=== PATIENT | male | born 1940 | race African-American/Black ===

== ENCOUNTER 2018-01-22 18:39 | Inpatient (IN) | payer OTHER ==
[~2018-01-22] VITALS: Ht 177.8 cm; Wt 65.8 kg
--- NOTE | ~2018-01-22 | EKG ---
[address] [address] ELECTROCARDIOGRAM REPORT Name: EVAN BARNES Room #: 457-P ADM IN M.R.#: [id number] Admission: 01/22/18 Attend Phys: Guillermo Montes MD Discharge: Date of : 40 Report #: [id number] THIS REPORT FOR: //name// [facility] ED Test Date: 2018-01-22 Test Time: 18:50:11 Pat Name: EVAN MEADELEY Department: Room: [facility] Gender: M Home Demonstrator: DILIA : 1940 Requested By: Shamika Arenas Order Number: [id number] MD: Garfield Hunt Measurements Intervals [place] Rate: 74 P: 78 [place]: 138 QRS: 68 QRSD: 96 T: 73 QT: 384 QTc: 426 Interpretive Statements Sinus rhythm No previous ECG available for comparison Electronically Signed On 01-23-2018 11:14:43 COFFEE GRINDER by Garfield Hunt [email or web address] <ELECTRONICALLY SIGNED> By: Garfield Hunt MD 01/23/18 1114 1850 49 Garfield Hunt MD /ELLIS
[2018-01-22 18:40] VITALS: BP 105/49
[2018-01-22 19:00] LABS: ABSOLUTE NEUTROPHILS 5.8 thou/uL (1.4-8.2); BASOPHILS 0.5 % (0.0-2.0); HEMATOCRIT 38.3 % (42.0-52.0); HEMOGLOBIN 12.9 gm/dL (14.0-18.0); LYMPHOCYTES 18.8 % (24.0-44.0); MCH 32.2 pg (26.0-34.0); MCHC 33.8 g/dL (28.0-37.0); MCV 95.3 fL (80.0-100.0); MONOCYTES 6.4 % (1.0-8.0); PLATELET COUNT 195 thou/uL (150-400); POLYS 74.3 % (36.0-66.0); RBC 4.02 mil/uL (4.50-6.00); RDW 13.6 % (10.5-14.5); WBC 7.9 thou/uL (4.0-11.0)
[2018-01-22 19:05] LABS: CALCIUM 8.8 mg/dL (8.5-10.1); CREATININE 1.6 mg/dL (0.7-1.3); POTASSIUM 4.4 mmol/L (3.5-5.1)
[2018-01-22 19:11] LABS: ALBUMIN 2.9 g/dL (3.4-5.0); TOTAL BILIRUBIN 0.9 mg/dL (<0.1-1.0); TOTAL PROTEIN 6.4 g/dL (6.4-8.2)
[2018-01-22 19:13] LABS: URINE BILIRUBIN NEGATIVE (Negative); URINE BLOOD NEGATIVE (Negative); URINE CLARITY CLEAR; URINE COLOR YELLOW; URINE GLUCOSE-RANDOM* 3+ (Negative); URINE KETONES NEGATIVE (Negative); URINE LEUKOCYTES-REFLEX NEGATIVE (Negative); URINE NITRITE-REFLEX NEGATIVE (Negative); URINE PROTEIN (DIPSTICK) NEGATIVE (Negative); URINE SPECIFIC GRAVITY 1.015 (1.005-1.035); URINE UROBILINOGEN 0.2 E.U./dl (0.2-1.0)
[2018-01-22] MEDS ORDERED: NITROGLYCERIN0.4 MG SUBLING (19:24)
[2018-01-22 20:19] VITALS: BP 94/48
[2018-01-22 21:20] VITALS: BP 110/48
[2018-01-23 03:24] VITALS: BP 101/51
[2018-01-23 05:52] LABS: CALCIUM 9.2 mg/dL (8.5-10.1); CREATININE 1.4 mg/dL (0.7-1.3); POTASSIUM 4.5 mmol/L (3.5-5.1)
[2018-01-23 07:26] VITALS: BP 102/43
[2018-01-23] MEDS ORDERED: SERTRALINE HCL50 MG PO (15:15)
[2018-01-23] MEDS ORDERED: METOPROLOL SUCC50 MG PO (15:17)
[2018-01-23] MEDS ORDERED: FLOMAX0.4 MG PO (15:18)
[2018-01-23] MEDS ORDERED: PLAVIX 75 MG TA75 M1 PO (15:19)
[2018-01-23] MEDS ORDERED: LIPITOR80 MG PO (15:19)
[2018-01-23] MEDS ORDERED: COLACE100 MG PO (15:19)
[2018-01-23] MEDS ORDERED: LISINOPRIL20 MG PO (15:20)
[2018-01-23] MEDS ORDERED: PROTONIX 20 MG20 M1 PO (15:20)
[2018-01-23] MEDS ORDERED: ANTIVERT25 MG PO (15:21)
[2018-01-23] MEDS ORDERED: ASPIRIN81 M2 PO (15:21)
[2018-01-23] MEDS ORDERED: CYMBALTA60 MG PO (15:23)
[2018-01-23] MEDS ORDERED: BENTYL 20 MG TA20 M1 PO (15:23)
[2018-01-23] MEDS ORDERED: IMDUR 60 MG TAB60 M1 PO (15:24)
[2018-01-23] MEDS ORDERED: JARDIANCE10 MG PO (15:24)
[2018-01-23 15:37] VITALS: BP 115/51
[2018-01-23 19:53] VITALS: BP 145/61
[2018-01-23 20:06] LABS: GLYCOHEMOGLOBIN (HGB A1C) 7.4 % (4.8-5.6)
[2018-01-24 03:13] LABS: ABSOLUTE NEUTROPHILS 7.3 thou/uL (1.4-8.2); BASOPHILS 0.3 % (0.0-2.0); EOSINOPHILS 0.1 % (0.0-3.0); HEMATOCRIT 34.2 % (42.0-52.0); HEMOGLOBIN 11.4 gm/dL (14.0-18.0); LYMPHOCYTES 26.1 % (24.0-44.0); MCH 31.6 pg (26.0-34.0); MCHC 33.2 g/dL (28.0-37.0); MCV 95.2 fL (80.0-100.0); MONOCYTES 8.8 % (1.0-8.0); PLATELET COUNT 189 thou/uL (150-400); POLYS 64.7 % (36.0-66.0); RDW 13.7 % (10.5-14.5); WBC 11.2 thou/uL (4.0-11.0)
[2018-01-24 03:30] VITALS: BP 115/47
[2018-01-24 03:42] LABS: CALCIUM 8.9 mg/dL (8.5-10.1); CREATININE 0.9 mg/dL (0.7-1.3); POTASSIUM 3.7 mmol/L (3.5-5.1)
[2018-01-24 04:08] LABS: FOLIC ACID 6.9 ng/mL (8.6-58.9); TSH 0.957 uIU/mL (0.358-3.740)
[2018-01-24 08:05] VITALS: BP 143/78
[2018-01-24] MEDS ORDERED: AUGMENTIN 875-1 EACH PO (12:40)
[2018-01-24] MEDS ORDERED: VENTOLIN HFA 1818 GM INH (12:40)
[2018-01-24 13:16] VITALS: BP 143/78
== END 2018-01-24 15:41 | disposition home or self-care (01) | DRG 682 ==
LOC: ER 18:39 → EDBD 19:53 → 4W 19:53 → EROBS 19:53 → 4W 20:49 → ENTRNSPT 01-24 13:37 → EDTRNSPTSTS 01-24 13:39 → 4W 01-24 15:41
PROVIDERS: Hospitalist; Nurse Practitioner Family
DX: N17.9 Acute kidney failure, unspecified (principal); J18.9 Pneumonia, unspecified organism; E44.0 Moderate protein-calorie malnutrition; J44.9 Chronic obstructive pulmonary disease, unspecified; I25.10 Atherosclerotic heart disease of native coronary artery without angina pectoris; E86.0 Dehydration; F32.9 Major depressive disorder, single episode, unspecified; K21.9 Gastro-esophageal reflux disease without esophagitis; E11.40 Type 2 diabetes mellitus with diabetic neuropathy, unspecified; I25.2 Old myocardial infarction; Z90.49 Acquired absence of other specified parts of digestive tract; Z90.81 Acquired absence of spleen; Z90.411 Acquired partial absence of pancreas; Z68.20 Body mass index [BMI] 20.0-20.9, adult; Z95.5 Presence of coronary angioplasty implant and graft; Z87.891 Personal history of nicotine dependence; Z79.899 Other long term (current) drug therapy
CPT/HCPCS: 10045

== ENCOUNTER 2019-05-04 14:56 | Emergency (ER) | payer OTHER ==
[~2019-05-04] VITALS: Ht 180.3 cm; Wt 63.5 kg
[~2019-05-04 14:56] MED LIST: ANTIVERT25 MG PO; ASPIRIN81 M2 PO; AUGMENTIN 875-1 EACH PO; BENTYL 20 MG TA20 M1 PO; COLACE100 MG PO; CYMBALTA60 MG PO; FLOMAX0.4 MG PO; IMDUR 60 MG TAB60 M1 PO; JARDIANCE10 MG PO; LIPITOR80 MG PO; LISINOPRIL20 MG PO; METOPROLOL SUCC50 MG PO; NITROGLYCERIN0.4 MG SUBLING; PLAVIX 75 MG TA75 M1 PO; PROTONIX 20 MG20 M1 PO; SERTRALINE HCL50 MG PO; VENTOLIN HFA 1818 GM INH
[2019-05-04 15:54] LABS: ABSOLUTE NEUTROPHILS 3.9 thou/uL (1.4-8.2); BASOPHILS 0.7 % (0.0-2.0); EOSINOPHILS 0.3 % (0.0-3.0); HEMATOCRIT 41.5 % (42.0-52.0); HEMOGLOBIN 13.7 gm/dL (14.0-18.0); LYMPHOCYTES 34.2 % (24.0-44.0); MCHC 33.1 g/dL (28.0-37.0); MCV 93.8 fL (80.0-100.0); MONOCYTES 7.3 % (1.0-8.0); PLATELET COUNT 234 thou/uL (150-400); POLYS 57.5 % (36.0-66.0); RBC 4.42 mil/uL (4.50-6.00); RDW 13.8 % (10.5-14.5); WBC 6.7 thou/uL (4.0-11.0)
[2019-05-04 16:00] LABS: ANION GAP 8 mmol/L (7-16); BUN 9 mg/dL (7-18); CALCIUM 9.4 mg/dL (8.5-10.1); CHLORIDE 96 mmol/L (98-107); CO2 28 mmol/L (21-32); GLUCOSE 317 mg/dL (74-106); SODIUM 132 mmol/L (136-145)
[2019-05-04 16:10] LABS: LIPASE 63 U/L (73-393); SGOT 17 U/L (15-37); SGPT 21 U/L (30-65); TOTAL BILIRUBIN 1.1 mg/dL (<0.1-1.0); TOTAL PROTEIN 7.2 g/dL (6.4-8.2); TROPONIN-I <0.06 ng/mL (<0.06)
[2019-05-04 16:22] LABS: URINE BILIRUBIN NEGATIVE (Negative); URINE BLOOD NEGATIVE (Negative); URINE CLARITY CLEAR; URINE COLOR YELLOW; URINE GLUCOSE-RANDOM* 3+ (Negative); URINE KETONES TRACE (Negative); URINE LEUKOCYTES-REFLEX NEGATIVE (Negative); URINE NITRITE-REFLEX NEGATIVE (Negative); URINE PROTEIN (DIPSTICK) NEGATIVE (Negative); URINE SPECIFIC GRAVITY 1.025 (1.005-1.035)
[2019-05-04] MEDS ORDERED: PEPCID20 MG PO (17:05)
[2019-05-04] MEDS ORDERED: ONDANSETRON HCL4 M2 PO (17:05)
[2019-05-04 17:25] VITALS: BP 138/74
--- NOTE | 2019-05-05 13:20 | EKG ---
[facility] [place] [address] ELECTROCARDIOGRAM REPORT Name: CAMERONEVAN Room #: DEP [facility]#: [id number] Admission: 05/04/19 Attend Phys: Discharge: 05/04/19 Date of : 40 Report #: [id number] THIS REPORT FOR: cc: FAM - Family physician unknown FAM - Family physician unknown Eddy Sweet MD [facility] THIS REPORT FOR: //name// [facility] ED Test Date: 2019-05-04 Test Time: 15:32:10 Pat Name: EVAN BARNES Department: Room: Gender: Emergency Department Technician: NO : 1940 Requested By: Amanda Galna Order Number: [id number] MD: Eddy Sweet Measurements Intervals [place] Rate: 74 P: 82 [place]: 137 QRS: 61 QRSD: 94 T: 67 QT: 396 QTc: 440 Interpretive Statements Sinus rhythm Left ventricular hypertrophy Compared to ECG 01/22/2018 18:50:11 No significant change was found Electronically Signed On 05-05-2019 13:19:10 CDT by Eddy Sweet [email or web address] <ELECTRONICALLY SIGNED> By: Eddy Sweet MD, FAC 05/05/19 1319 31 153 Eddy Sweet MD, [facility] /EPI
== END 2019-05-04 17:52 | disposition home or self-care (01) ==
LOC: ER 14:56
PROVIDERS: Physician Assistant
DX: R11.2 Nausea with vomiting, unspecified (principal); R10.33 Periumbilical pain; I25.2 Old myocardial infarction; E11.40 Type 2 diabetes mellitus with diabetic neuropathy, unspecified; Z98.61 Coronary angioplasty status; Z90.49 Acquired absence of other specified parts of digestive tract; Z79.899 Other long term (current) drug therapy; Z79.82 Long term (current) use of aspirin; Z87.891 Personal history of nicotine dependence

== ENCOUNTER 2019-06-05 16:25 | Emergency (ER) | payer OTHER ==
[~2019-06-05] VITALS: Ht 182.9 cm; Wt 59.0 kg
[~2019-06-05 16:25] MED LIST changes: +ONDANSETRON HCL4 M2 PO; +PEPCID20 MG PO
[2019-06-05 16:52] LABS: ABSOLUTE NEUTROPHILS 3.2 thou/uL (1.4-8.2); BASOPHILS 0.9 % (0.0-2.0); EOSINOPHILS 0.4 % (0.0-3.0); HEMATOCRIT 39.6 % (42.0-52.0); HEMOGLOBIN 13.4 gm/dL (14.0-18.0); LYMPHOCYTES 34.7 % (24.0-44.0); MCH 31.8 pg (26.0-34.0); MCHC 33.7 g/dL (28.0-37.0); MCV 94.2 fL (80.0-100.0); PLATELET COUNT 264 thou/uL (150-400); RDW 14.3 % (10.5-14.5); WBC 5.8 thou/uL (4.0-11.0)
[2019-06-05 17:08] LABS: CALCIUM 9.2 mg/dL (8.5-10.1); POTASSIUM 4.8 mmol/L (3.5-5.1)
[2019-06-05 17:09] LABS: APTT 25.3 Seconds (24.5-32.8); PROTIME 10.4 Seconds (9.3-11.4)
[2019-06-05 17:17] LABS: TROPONIN-I <0.06 ng/mL (<0.06)
[2019-06-05 18:21] LABS: URINE BILIRUBIN NEGATIVE (Negative); URINE BLOOD NEGATIVE (Negative); URINE CLARITY CLEAR; URINE COLOR YELLOW; URINE GLUCOSE-RANDOM* 3+ (Negative); URINE KETONES NEGATIVE (Negative); URINE LEUKOCYTES-REFLEX NEGATIVE (Negative); URINE NITRITE-REFLEX NEGATIVE (Negative); URINE PROTEIN (DIPSTICK) NEGATIVE (Negative)
[2019-06-05 20:20] VITALS: BP 140/80
--- NOTE | 2019-06-06 08:08 | EKG ---
[facility] [place] [address] ELECTROCARDIOGRAM REPORT Name: EVAN BARNES Room #: DEP [facility]#: [id number] Admission: 06/05/19 Attend Phys: Discharge: 06/05/19 Date of : 40 Report #: [id number] THIS REPORT FOR: cc: SUE - No family physician/PCP FAM - No family physician/PCP Eddy Sweet MD [facility] THIS REPORT FOR: //name// [facility] ED Test Date: 2019-06-05 Test Time: 16:29:14 Pat Name: EVAN BARNES Department: Room: Gender: Manager Intranet: [facility] : 1940 Requested By: Gracia Leger Order Number: [id number] MD: Eddy Sweet Measurements Intervals [place] Rate: 80 P: 86 [place]: 139 QRS: 80 QRSD: 88 T: 81 QT: 380 QTc: 439 Interpretive Statements Sinus rhythm Probable left ventricular hypertrophy Minimal ST elevation, diffuse leads Compared to ECG 05/04/2019 15:32:10 No significant change was found Electronically Signed On 06-06-2019 8:06:54 CDT by Eddy Sweet [email or web address] <ELECTRONICALLY SIGNED> By: Eddy Sweet MD, FACC 06/06/19 0806 1629 1629 Eddy Sweet MD, [facility] /EPI
== END 2019-06-05 20:15 | disposition home or self-care (01) ==
LOC: ER 16:25
PROVIDERS: Nurse Practitioner
DX: R53.1 Weakness (principal); R10.84 Generalized abdominal pain; I25.10 Atherosclerotic heart disease of native coronary artery without angina pectoris; E11.40 Type 2 diabetes mellitus with diabetic neuropathy, unspecified; J44.9 Chronic obstructive pulmonary disease, unspecified; Z90.49 Acquired absence of other specified parts of digestive tract; Z87.891 Personal history of nicotine dependence

== ENCOUNTER 2019-11-16 19:02 | Emergency (ER) | payer OTHER ==
[~2019-11-16] VITALS: Ht 180.3 cm; Wt 54.0 kg
[2019-11-16 19:53] LABS: ABSOLUTE NEUTROPHILS 4.9 thou/uL (1.4-8.2); BASOPHILS 1.2 % (0.0-2.0); EOSINOPHILS 0.8 % (0.0-3.0); HEMATOCRIT 32.4 % (42.0-52.0); LYMPHOCYTES 25.6 % (24.0-44.0); MCH 30.4 pg (26.0-34.0); MCHC 33.8 g/dL (28.0-37.0); MCV 89.9 fL (80.0-100.0); MONOCYTES 9.5 % (1.0-8.0); PLATELET COUNT 399 thou/uL (150-400); POLYS 62.9 % (36.0-66.0); RBC 3.61 mil/uL (4.50-6.00); RDW 14.9 % (10.5-14.5); WBC 7.8 thou/uL (4.0-11.0)
[2019-11-16 20:12] LABS: ALBUMIN 2.4 g/dL (3.4-5.0); ANION GAP 9 mmol/L (7-16); BUN 17 mg/dL (7-18); CALCIUM 10.4 mg/dL (8.5-10.1); CHLORIDE 91 mmol/L (98-107); CO2 27 mmol/L (21-32); POTASSIUM 4.5 mmol/L (3.5-5.1); SGOT 15 U/L (15-37); SGPT 12 U/L (30-65); SODIUM 127 mmol/L (136-145); TOTAL BILIRUBIN 0.4 mg/dL (0.2-1.0); TOTAL PROTEIN 8.3 g/dL (6.4-8.2); TROPONIN-I <0.06 ng/mL (<0.06)
[2019-11-16 20:16] LABS: GLUCOSE 558 mg/dL (74-106)
[2019-11-16 21:45] LABS: URINE BILIRUBIN NEGATIVE (Negative); URINE BLOOD NEGATIVE (Negative); URINE CLARITY CLEAR; URINE COLOR YELLOW; URINE GLUCOSE-RANDOM* 3+ (Negative); URINE KETONES NEGATIVE (Negative); URINE LEUKOCYTES-REFLEX NEGATIVE (Negative); URINE NITRITE-REFLEX NEGATIVE (Negative); URINE PROTEIN (DIPSTICK) NEGATIVE (Negative); URINE SPECIFIC GRAVITY <= 1.005 (1.005-1.035); URINE UROBILINOGEN 0.2 E.U./dl (0.2-1.0)
[2019-11-17 00:25] VITALS: BP 145/81
--- NOTE | 2019-11-17 16:43 | EKG ---
[facility] [place] [place] [address] ELECTROCARDIOGRAM REPORT Name: EVAN BARNES Room #: DEP [facility]#: [id number] Admission: 11/16/19 Attend Phys: Discharge: 11/17/19 Date of : 40 Report #: [id number] THIS REPORT FOR: cc: FAM - No family physician/PCP FAM - No family physician/PCP Eddy Sweet MD [facility] ~ THIS REPORT FOR: //name// [facility] ED Test Date: 2019-11-16 Test Time: 19:35:24 Pat Name: EVAN BARNES Department: Room: Gender: Plan Checker: : 1940 Requested By: Abdulaziz Steele Order Number: [id number] MD: Eddy Sweet Measurements Intervals [place] Rate: 80 P: 77 [place]: 137 QRS: 62 QRSD: 88 T: 63 QT: 359 QTc: 415 Interpretive Statements Sinus rhythm Minimal ST elevation, diffuse leads Compared to ECG 06/05/2019 16:29:14 No significant changes Electronically Signed On 11-17-2019 16:43:33 CDT by Eddy Sweet [email or web address] <ELECTRONICALLY SIGNED> By: Eddy Sweet MD, FACC 11/17/19 1643 34 34 Eddy Sweet MD, [facility] /EPI
== END 2019-11-17 01:03 | disposition home or self-care (01) ==
LOC: ER 19:02
PROVIDERS: Emergency Medicine
DX: E11.65 Type 2 diabetes mellitus with hyperglycemia (principal); R53.1 Weakness; I25.2 Old myocardial infarction; Z90.49 Acquired absence of other specified parts of digestive tract; Z90.89 Acquired absence of other organs; Z79.899 Other long term (current) drug therapy; Z87.891 Personal history of nicotine dependence

== ENCOUNTER 2019-11-27 03:02 | Inpatient (IN) | payer OTHER ==
[2019-11-27] VITALS (9 sets, daily range): BP systolic 109–138; BP diastolic 63–73
[~2019-11-27] VITALS: Ht 182.9 cm; Wt 54.6 kg
--- NOTE | 2019-11-27 03:21 | NUR ---
[address] [facility], [place] [address] [phone] JONO MENDEZ () [phone]
[2019-11-27] MEDS ORDERED: PEPCID20 MG PO (03:25)
[2019-11-27 04:21] LABS: HEMATOCRIT 32.5 % (42.0-52.0); HEMOGLOBIN 10.8 gm/dL (14.0-18.0); MCH 29.9 pg (26.0-34.0); MCHC 33.2 g/dL (28.0-37.0); MCV 89.8 fL (80.0-100.0); PLATELET COUNT 433 thou/uL (150-400); RBC 3.62 mil/uL (4.50-6.00); WBC 8.2 thou/uL (4.0-11.0)
[2019-11-27 04:22] LABS: ANION GAP 8 mmol/L (7-16); BUN 9 mg/dL (7-18); CALCIUM 10.1 mg/dL (8.5-10.1); CHLORIDE 95 mmol/L (98-107); CO2 29 mmol/L (21-32); CREATININE 1.2 mg/dL (0.7-1.3); GLUCOSE 357 mg/dL (74-106); POTASSIUM 4.6 mmol/L (3.5-5.1); SODIUM 132 mmol/L (136-145)
[2019-11-27 04:39] LABS: ALBUMIN 2.3 g/dL (3.4-5.0); MAGNESIUM 1.6 mg/dL (1.8-2.4); SGOT 14 U/L (15-37); SGPT 13 U/L (30-65); TOTAL BILIRUBIN 0.5 mg/dL (0.2-1.0); TOTAL PROTEIN 8.7 g/dL (6.4-8.2); TROPONIN-I <0.06 ng/mL (<0.06)
[2019-11-27 05:12] LABS: URINE BILIRUBIN NEGATIVE (Negative); URINE BLOOD NEGATIVE (Negative); URINE CLARITY CLOUDY; URINE COLOR YELLOW; URINE GLUCOSE-RANDOM* 3+ (Negative); URINE KETONES TRACE (Negative); URINE LEUKOCYTES-REFLEX NEGATIVE (Negative); URINE NITRITE-REFLEX NEGATIVE (Negative); URINE PROTEIN (DIPSTICK) NEGATIVE (Negative); URINE SPECIFIC GRAVITY 1.015 (1.005-1.035)
[2019-11-27 07:10] LABS: ABSOLUTE NEUTROPHILS 4.2 thou/uL (1.4-8.2); PLATELET ESTIMATE INCREASED
--- NOTE | 2019-11-27 07:44 | EKG ---
[facility] [place] [address] ELECTROCARDIOGRAM REPORT Name: LT CAMERON Room #: [facility]#: [id number] Admission: 11/27/19 Attend Phys: Discharge: Date of : 40 Report #: [id number] THIS REPORT FOR: cc: SUE - No family physician/PCP FAM - No family physician/PCP Eddy Sweet MD [facility] ~ THIS REPORT FOR: //name// [facility] ED Test Date: 2019-11-27 Test Time: 03:11:07 Pat Name: LT BARNES Department: Room: Gender: M Key Punch Operator: [place] [address] : 1940 Requested By: Danyel Anne Order Number: [id number] MD: Eddy Sweet Measurements Intervals [place] Rate: 100 P: 76 SD: 126 QRS: 56 QRSD: 85 T: 61 QT: 309 QTc: 399 Interpretive Statements Sinus tachycardia Otherwise normal tracing Compared to ECG 11/16/2019 19:35:24 ST (T wave) deviation no longer present Electronically Signed On 11-27-2019 7:44:04 CDT by Eddy Sweet [email or web address] <ELECTRONICALLY SIGNED> By: Eddy Sweet MD, [facility] 11/27/19 0744 0 0 Eddy Sweet MD, [facility] /EPI
--- NOTE | 2019-11-27 08:32 | NUR ---
ATTEMPTED TO CALL REPORT, WAS ADVISED NURSE WAS 'IN A ROOM' AND THEY WILL CALL THE ED BACK IN A FEW MINUTES FOR REPORT
[2019-11-27] MEDS ORDERED: CREON DR 36,001 EACH PO (09:41)
[2019-11-27] MEDS ORDERED: LANTUSSOLASTAR SUBQ (09:42)
[2019-11-27] MEDS ORDERED: VITAMIN D325 MCG PO (09:44)
[2019-11-27] MEDS ORDERED: VITAMIN B-121000 MC2 SUBLING (09:44)
[2019-11-27 09:49] LABS: ALBUMIN 2.4 g/dL (3.4-5.0); TOTAL PROTEIN 8.9 g/dL (6.4-8.2)
[2019-11-27 10:14] LABS: TSH 0.753 uIU/mL (0.358-3.740)
--- NOTE | 2019-11-27 14:07 | NUR ---
ASSUMED PATIENT CARE THIS AM AT APROXIMATELY 1000 PATIENT ARRIVED TO FLOOR FROM ER. NO ACUTE DISTRESS NOTED UPON ARRIVAL TO FLOOR. VSS. PATIENT ORIENTED TO ROOM AND FACILITY POLICIES AND PROCEDURES. ALL BELONGINGS WITHIN REACH. BED ALARM ARMED. O2 SAT STABLE ON RA AND RESPIRATIONS ARE EVEN/ UNLABORED. PATIENT REPORTS THAT HE HAS NOT BEEN EATING WELL FOR THE PAST FEW WEEKS. BECAUSE OF NAUSEA AND POOR APPETITE. WEIGHT LOSS OF ABOUT 20 LBS IN THE LAST TWO MONTHS. CALLED UPON ARRIVAL TO UNIT AND MADE AWARE OF VISITATION RESTRICTIONS AND VERBALIED UNSERSTANDING. STATES THAT SHE WOULD LIKE PATIENT TO BE TRANSFERRED TO A FACILITY UPON DISCHARGE BECAUSE OF COVID POSITIVE STATUS. MADE ESTHER JOHNSON AWARE. ENDOCRINE CONSULT CALLED THIS SHIFT BUT NO MD SALESPERSON ART OBJECTS TODAY, CALLED DR. ALBERTO TO MAKE AWARE OF SITUATION AND STATES "WILL TAKE CARE OF IT".
--- NOTE | 2019-11-27 16:07 | NUR ---
INITIAL ASSESSMENT: Received consult. SW reviewed chart and spoke with nursing. Pt was admitted from home and tested positive for COVID-19. Pt is in Enhanced Isolation. Pt with recent hx of weight loss, frequent falls and weakness. PT with hx of lung cancer. SW spoke with pt's , [place]ina, via phone. Introduced role of SW. Pt lives at home with his and dtr, who both have Lupus. Prior to admission, pt was independent with ADLs. Pt has had recent falls. Pt normally goes to the [facility] for primary care. No hx of services or post-acute placement. Pt's family was in town visiting last weekend from [place]. Multiple family members present. Unsure of where pt was exposed to COVID. SW discussed discharge needs. Pt's states she is uncomfortable with pt coming home while being COVID positive. SW discussed post-acute placement. Pt's would like to speak to the physicians about pt's condition and plan of care. Pt's states that pt said he "is ready to go be with God." Pt is a DNR. SW is following to assist as needed with discharge planning.
[2019-11-28 03:34] VITALS: BP 139/78
[2019-11-28 06:09] LABS: HEMATOCRIT 32.6 % (42.0-52.0); HEMOGLOBIN 10.9 gm/dL (14.0-18.0); MCH 29.8 pg (26.0-34.0); MCHC 33.5 g/dL (28.0-37.0); RBC 3.66 mil/uL (4.50-6.00); RDW 14.7 % (10.5-14.5)
[2019-11-28 06:18] LABS: CALCIUM 9.4 mg/dL (8.5-10.1); CREATININE 0.9 mg/dL (0.7-1.3); MAGNESIUM 1.8 mg/dL (1.8-2.4); PHOSPHORUS 2.7 mg/dL (2.5-4.9); POTASSIUM 4.2 mmol/L (3.5-5.1)
[2019-11-28 07:08] LABS: GLYCOHEMOGLOBIN (HGB A1C) 13.6 % (4.8-5.6)
[2019-11-28 07:23] VITALS: BP 117/69
--- NOTE | 2019-11-28 10:53 | NUR ---
ASSUMED PATIENT CARE THIS AM AT APPROXIMATELY 0700. PATIENT RESTING IN BED. AWAKE AND ALERT. O2 SAT STABLE ON ROOM AIR. PATIENT VERBALIZING THAT HE WOULD LIKE TO ASK DOCTOR ABOUT COMFORT CARE/ HOSPICE. HAS BEEN DEALING WITH LUNG CA AND STATES HE IS TIRED AND WANTS TO REST. DR. ALBERTO MADE AWARE UPON ROUNDS, STATES WILL CONSULT DR. MELTON. MADE DR. ALBERTO AWARE. PATIENT NOT EATING ANY MEALS THIS AM. CLIENT INSIGHTS CONSULTANT TO SEE PATIENT FOR SUPPLEMENTS.
[2019-11-28 11:26] VITALS: BP 102/56
[2019-11-28 15:14] VITALS: BP 103/61
--- NOTE | 2019-11-28 15:57 | NUR ---
ESTHER reviewed chart and spoke with nursing and attending physician. Pt remains in Enhanced Isolation due to COVID-19. Pt is febrile and is not on O2. Pt refused to have ID consultation. Psych consult ordered today to evaluate pt's competency. Pt's has requested pt be a full code. Code status changed from DNR. ESTHER spoke with pt's via phone to provide update. Pt's states that she feels that pt would want to be given the chance to recover from COVID, but knows that his dementia is also a barrier. ESTHER is following to assist as needed with discharge planning.
[2019-11-28 19:34] VITALS: BP 104/57
[2019-11-29 03:54] VITALS: BP 111/65
[2019-11-29 06:16] LABS: HEMOGLOBIN 9.2 gm/dL (14.0-18.0); MCH 29.4 pg (26.0-34.0); MCHC 32.8 g/dL (28.0-37.0); MCV 89.5 fL (80.0-100.0); RBC 3.13 mil/uL (4.50-6.00); RDW 14.6 % (10.5-14.5); WBC 6.4 thou/uL (4.0-11.0)
[2019-11-29 06:40] LABS: CALCIUM 9.4 mg/dL (8.5-10.1); CREATININE 0.8 mg/dL (0.7-1.3); MAGNESIUM 1.5 mg/dL (1.8-2.4); PHOSPHORUS 2.7 mg/dL (2.5-4.9)
[2019-11-29 08:32] VITALS: BP 103/57
--- NOTE | 2019-11-29 13:40 | NUR ---
ESTHER reviewed chart and spoke with nursing and attending physician. Pt remains in Enhanced Isolation due to COVID-19. Pt has been febrile and not requiring O2 or IV meds at this time. Psych consult ordered to evaluate pt's competency. Pt has been refusing treatment and would like to be a DNR. Pt's requested pt be a full code. SW spoke with pt's via phone to provide update. Pt's states that she is pt's DPOA and document is on file at the [facility]. Pt's states that she thinks pt's dementia is getting worse. Pt has mentioned that he would like to transfer to the [facility]. Pt's does not want him to transfer to the [place]. SW discussed discharge plans. Pt's does not want pt to return home due to his COVID status and that pt's and dtr, both have Lupus. They both tested negative for COVID last week. Options provided for SNF placement. Pt's is agreeable with referral to [facility] SNF. ESTHER contacted [facility] post acute liaison to see if they would have a bed available for early next week. No weekend discharge planned. ESTHER is following to assist as needed with discharge planning.
[2019-11-29 16:38] VITALS: BP 119/71
--- NOTE | 2019-11-29 19:05 | NUR ---
PATIENT STATED HE WILL LIKE TO GET MORE BLANKETS HE WAS COLD. IN BED WITH MORE THAN THREE BLANKETS. HAS VERY POOR APPETITE. WILL CONT WITH PLAN OF CARE.
[2019-11-29 19:16] VITALS: BP 97/59
[2019-11-30 03:52] VITALS: BP 125/60
[2019-11-30 05:18] LABS: HEMATOCRIT 26.5 % (42.0-52.0); HEMOGLOBIN 8.8 gm/dL (14.0-18.0); MCH 29.6 pg (26.0-34.0); MCHC 33.1 g/dL (28.0-37.0); MCV 89.3 fL (80.0-100.0); RBC 2.97 mil/uL (4.50-6.00); WBC 5.5 thou/uL (4.0-11.0)
[2019-11-30 05:24] LABS: CREATININE 0.7 mg/dL (0.7-1.3); MAGNESIUM 1.5 mg/dL (1.8-2.4); PHOSPHORUS 2.3 mg/dL (2.5-4.9); POTASSIUM 3.8 mmol/L (3.5-5.1)
[2019-11-30 07:36] VITALS: BP 111/62
[2019-11-30 11:16] VITALS: BP 99/51
[2019-11-30 15:25] VITALS: BP 95/54
--- NOTE | 2019-11-30 16:39 | NUR ---
PATIENT NOTED TO BE SLIGHTLY CONFUSED THIS PM. HE IS ALERT ORIENTED X4 WITH OCCASIONAL CONFUSION. WAS NOTED LYING ACROSS THE BED WITH FEET ON THE FLOOR AND MUMBLING TO SELF. REORIENTED AND ASSISTED BACK TO BED. RESPIRAITONS ARE EVEN NON LABORED. WILL CONT WITH PLAN OF CARE.
[2019-11-30 20:37] VITALS: BP 135/73
[2019-12-01 03:47] VITALS: BP 135/72
--- NOTE | 2019-12-01 04:05 | NUR ---
PT IS VERY WEAK, HE NEEDS STANDBY ASSIST OUT OF BED TO BSC. HE IS DRINKING PO WELL. UP TO BSC AT BEDTIME, HE FELT LIKE HE COULD HAVE A BM, BUT NONE AT THAT TIME. HE DENIES FEELING OVERFULL OR DISCOMFORT. HE HAS HAD A ELEVATE TEMP TONIGHT. TYLENOL GIVEN.
[2019-12-01 04:11] LABS: HEMOGLOBIN 9.3 gm/dL (14.0-18.0); MCH 29.5 pg (26.0-34.0); MCHC 33.1 g/dL (28.0-37.0); RBC 3.15 mil/uL (4.50-6.00); RDW 14.9 % (10.5-14.5); WBC 5.7 thou/uL (4.0-11.0)
[2019-12-01 04:18] LABS: CALCIUM 8.8 mg/dL (8.5-10.1); CREATININE 0.9 mg/dL (0.7-1.3); MAGNESIUM 1.6 mg/dL (1.8-2.4); POTASSIUM 3.7 mmol/L (3.5-5.1)
[2019-12-01 08:59] VITALS: BP 129/72
--- NOTE | 2019-12-01 11:18 | NUR ---
PT HAD A BOWEL MOVEMENT TODAY, NO COMPLAINTS FROM THE PT AT THIS TIME. PT'S O2 IS AT 90% AT THIS TIME. PT WAS PLACED ON 2L/NC. NO OTHER COMPLAINTS AT THIS TIME. PT DID CALL APPROPERIATELY TO USE THE BATHROOM. ALL MEDS WERE TAKEN, THOUGH PATIENT DID COMPLAIN OF HAVING TOO MANY PILLS.
[2019-12-01 12:49] VITALS: BP 103/60
[2019-12-01 19:45] VITALS: BP 107/66
[2019-12-02] VITALS (7 sets, daily range): BP systolic 106–138; BP diastolic 60–81
--- NOTE | 2019-12-02 01:10 | NUR ---
ASSESSMENT: PT IS ALERT AND ORIENT TIMES TWO THIS SHIFT. SLIGHTLY CONFUSED AND FORGETFUL AT TIMES. DENIES PAIN. REPEATS HIMSELF IN LETTING ME KNOW THAT "THIS HAS BEEN THE SICKEST HE'S EVER BEEN". LOTS OF REASSURRANCE AND ENCOURAGEMENT GIVEN. VSS, AFEBRILE. SR PER MONITOR. CALL LIGHT NEAR BY. PPN INFUSING WITHOUT DIFFICULTY. SLOW PROGRESS TOWARDS DC GOALS. WILL CONTINUE TO MONITOR.
--- NOTE | 2019-12-02 15:04 | NUR ---
ESTHER reviewed chart and spoke with nursing and attending physician. Pt remains in Enhanced Isolation due to COVID-19. Pt has had fevers and is not requiring O2. Psych evaluated pt and states that pt does not have the capacity to make his own medical decisions. Palliative care physician to be consulted to discuss plan of care and treatment goals with pt's . Pt's agreeable with referral to [facility] for placement. SW faxed referral for review and notified post acute liaison of new referral. ESTHER is following to assist as needed with discharge planning.
--- NOTE | 2019-12-02 19:00 | NUR ---
PT DID WELL TODAY, RECEIVED FIRST DOSE OF REMDESEVIR, SHETH WAS INSERTED DUE TO BLADDER SCAN RESIDUAL VOLUME OF 800CC. PT TOLERATED THE PROCEDURE WELL. PROCEDURE WAS COMPLETED ASEPTICALLY BY THIS RN. PT WAS INSTRUCTED TO CONSUME ALL OF THE ENSURE AND WAS ABLE TO DO SO EASILY. WILL HAVE TO PASS THIS ALONG TO THE NOC SHIFT RN. PT ALSO WAS TO RECEIVE CONVALSCENT PLASMA THIS EVENING, THOUGH IT WAS PREPARED AROUND 1830 SO RN HAS TO DELEGATE THIS TASK TO THE NOC RN. VS ARE STABLE. PT IS DOING BETTER WITH THE MODERATE SCALE INSULIN. CONTINUING TO MONITOR, NO BM THIS SHIFT THOUGH PT HAD A LARGE BM YESTERADY.
[2019-12-03 03:56] VITALS: BP 103/61
--- NOTE | 2019-12-03 05:31 | NUR ---
PT SLEPT MOST OF THE NIGHT. RESPIRATIONS EVEN AND UNLABORED. VSS. AFEBRILE. PPN INFUSING ORDERED. CONVALESCENT PLAMSA GIVEN; PT TOLERATED WELL. GOOD URINE OUTPUT VIA SHETH. FALL PRECAUTIONS IN PLACE. PROGRESSING SLOWLY TOWARD POC GOALS. WILL GIVE REPORT TO ONCOMING NURSE.
[2019-12-03 06:46] LABS: ABSOLUTE NEUTROPHILS 4.8 thou/uL (1.4-8.2); BASOPHILS 0.3 % (0.0-2.0); HEMATOCRIT 27.1 % (42.0-52.0); LYMPHOCYTES 23.2 % (24.0-44.0); MCH 29.2 pg (26.0-34.0); MCHC 33.2 g/dL (28.0-37.0); MONOCYTES 7.1 % (1.0-8.0); PLATELET COUNT 355 thou/uL (150-400); POLYS 69.4 % (36.0-66.0); RBC 3.08 mil/uL (4.50-6.00); RDW 14.7 % (10.5-14.5); WBC 6.9 thou/uL (4.0-11.0)
[2019-12-03 07:02] LABS: FIBRINOGEN 433.1 mg/dL (210-360); INR 1.1; PROTIME 11.2 Seconds (9.3-11.4)
[2019-12-03 07:18] LABS: ALBUMIN 1.6 g/dL (3.4-5.0); ANION GAP 2 mmol/L (7-16); BUN 14 mg/dL (7-18); CHLORIDE 96 mmol/L (98-107); CO2 30 mmol/L (21-32); CREATININE 0.7 mg/dL (0.7-1.3); DIRECT BILIRUBIN < 0.1 mg/dL (<0.1-0.2); GLUCOSE 239 mg/dL (74-106); POTASSIUM 4.8 mmol/L (3.5-5.1); SGOT 27 U/L (15-37); SGPT 15 U/L (30-65); SODIUM 128 mmol/L (136-145); TOTAL BILIRUBIN 0.2 mg/dL (0.2-1.0); TOTAL PROTEIN 6.7 g/dL (6.4-8.2)
[2019-12-03 07:46] VITALS: BP 124/76
[2019-12-03 11:12] VITALS: BP 106/62
--- NOTE | 2019-12-03 11:37 | HC ---
[facility] [place] [address] CONSULTATION Name: CAMERON Room #: [address] [place] [address] IN M.R.#: [id number] Admission: 11/27/19 Attend Phys: Daniel Solis MD Discharge: Date of : 40 Report #: [id number] THIS REPORT FOR: cc: SUE Bowling family physician/PCP SUE Bowling family physician/PCP Josh Crenshaw MD ~ CC: [facility] physician/PCP Daniel Solis ENDOCRINE CONSULTATION NOTE CONSULTING PHYSICIAN: Dr. Solis. REASON FOR CONSULTATION: Uncontrolled type 2 diabetes mellitus. HISTORY OF PRESENT ILLNESS: This is a 78-year-old male patient whose medical background is significant for multiple medical issues including active lung cancer, coronary artery disease, hypertension, type 2 diabetes mellitus, depression, and BPH. The patient was admitted on 11/26 due to progressive generalized weakness and fatigue and was admitted for further care and monitoring where he was eventually found to be COVID-19 positive. The patient's background is noted for type 2 diabetes mellitus. On further questioning, the patient indicates that he has had type 2 diabetes mellitus for many years, but was unable to give detailed description of his treatment plan and whether it involves insulin or not. Having reviewed his medical records, it appears that he is maintained on Lantus insulin 15 units at bedtime. He was unable to give much insight into the pattern of blood glucose values that he has at home. Although he thought most were in the 140s. He believes that he would occasionally develop hypoglycemia, but does not believe that any was severe enough to warrant hospital stay or third democrat assistance. The patient is not aware of issues pertaining to diabetic retinopathy, nephropathy, neuropathy, but he does believe he has a history of CAD. He is also known to have hyperlipidemia and is maintained on atorvastatin 80 mg daily. He is known to have hypertension and is maintained on a combination of metoprolol 50 mg daily, Zestril 20 mg daily in addition to Imdur for his CAD background. REVIEW OF SYSTEMS: CONSTITUTIONAL: Fatigue, tiredness, but not fever or chills. He does not believe that his weight had changed significantly over the past few months. HEENT: Negative for sore throat, sinus pain or ear drainage. PULMONARY: Shortness of breath and cough, but not hemoptysis. CARDIAC: Negative for chest pain, palpitations, syncope or presyncope. GASTROINTESTINAL: Negative for abdominal pain, nausea, vomiting or changes in bowel movement frequency. [facility] [address] [place] [address] CONSULTATION Name: LT CAMERON Room #: 356-P [facility] IN [facility].#: [id number] Admission: 11/27/19 Attend Phys: Daniel Solis MD Discharge: Date of : 40 Report #: [id number] NEUROLOGY: Negative for loss of consciousness, headaches or seizure activity. Otherwise, his review of systems is noncontributory other than those mentioned in HPI. PAST MEDICAL HISTORY: 1. Type 2 diabetes mellitus. 2. Hypertension. 3. Hyperlipidemia. 4. Lung cancer. 5. Coronary artery disease, status post OR x 2, status ____ CABG x 2. 6. Diabetic neuropathy. 7. Depression. 8. GERD. OUTPATIENT MEDICATIONS: Include Zoloft 100 mg daily, metoprolol 50 mg daily, Flomax 0.4 mg daily, Lipitor 80 mg at bedtime, Colace 100 mg b.i.d., Plavix 75 mg daily, Protonix 20 mg daily, lisinopril 20 mg daily, aspirin 81 mg daily, Antivert 25 mg t.i.d., Bentyl 20 mg q. 6 hours p.r.n. cramps, Cymbalta 60 mg daily, Imdur 60 mg daily, Pepcid 20 mg daily, Creon with meals, Lantus insulin 15 units at bedtime, vitamin D3 25 mcg daily, vitamin B12 daily. ALLERGIES: No known drug allergies. FAMILY HISTORY: Noncontributory. SOCIAL HISTORY: The patient denies the active use of tobacco or alcohol. No use of illicit drugs. He is a former smoker. PHYSICAL EXAMINATION: GENERAL: Pleasant -Serbian male patient who is not in apparent pain or distress. He is sitting upright in bed. VITAL SIGNS: Blood pressure 111/66 mmHg, heart rate is 79 beats per minute, respirations 16 per minute, temperature 36.9 degrees Celsius. CONSTITUTIONAL: The patient appears comfortable, not in apparent distress. HEENT: Anicteric sclerae. Intact extraocular motions. NECK: Supple, without JVD, carotid bruits or lymphadenopathy. I do not appreciate thyromegaly. CHEST: Noted for diminished air entry bilaterally with scattered rales and rhonchi, but no wheeze or crackles. HEART: Regular rate and rhythm without murmurs or gallops. ABDOMEN: Soft, lax. No guarding. Active bowel sounds. EXTREMITIES: Lower extremity exam is negative for ankle edema, skin breaks, ulcerations. Pedal pulses are appreciated. NEUROLOGIC: Awake and alert, but not fully oriented, generally nonfocal exam. PSYCHIATRIC: Pleasant, interactive. Normal mood and affect. [facility] [address] [place] [address] CONSULTATION Name: LT CAMREON Room #: 356-P [facility] IN Daniel#: [id number] Admission: 11/27/19 Attend Phys: Daniel Solis MD Discharge: Date of : 40 Report #: [id number] LABORATORY DATA: Blood glucose values were reviewed at length since his hospital admission and are noted for blood glucose values are often over 250 mg/dL, although the patient had one documentation of hypoglycemia at 59 on 11/29. Sodium 130, potassium 3.7, chloride 95, CO2 of 27, anion gap 8, BUN 7, creatinine 0.9, AST 14, lipase 63, total bilirubin 0.5, calcium 8.8, phosphorus 2.3, magnesium 1.6, alkaline phosphatase 78, ALT 13, total protein 8.9, albumin 2.4, EGFR 99. Lactic acid 1.0. Troponin is negative. INR 1.0. White blood count 5.7, hemoglobin 9.3, hematocrit 28, platelets 357. TSH is 0.753. Vitamin B12 of 1393. Hemoglobin A1c 13.6. Vitamin D 28.1. ASSESSMENT AND PLAN: 1. Type 2 diabetes mellitus. 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 His hemoglobin A1c is indicative of predominant severe hyperglycemia prior to admission. During this admission, the patient has been challenged by the issues of active infection as well as the need to use intravenous steroids, which are still being maintained at rate of dexamethasone 6 mg daily. The patient is currently managed with a Humalog supplemental scale, moderate intensity, which I do not mind a mild maintaining but I would certainly like to resume his Lantus insulin coverage with 15 units daily. I will also initiate therapy with low dose metformin therapy at 500 mg daily, especially with a fairly intact kidney function. Blood glucose monitoring will continue a.c. and at bedtime and further therapeutic adjustments will be made accordingly. 2. Hyperlipidemia. The patient is currently on atorvastatin therapy and tolerates it well, he is to continue with the same. 3. Hypertension. The patient's level of blood pressure control is adequate, he is to continue with the same. 4. Pneumonia. The patient was diagnosed as having COVID-19. He has been managed with remdesivir as well as IV steroids and antibiotics. ID team is following closely. I have reviewed the patient's clinical care notes, laboratory studies in addition to other pertinent clinical information for over 35 minutes in addition to my encounter time with him. I certainly appreciate this consultation by Dr. Solis. <ELECTRONICALLY SIGNED> By: Josh Crenshaw MD 12/03/19 1137 1429 1950 Josh Crenshaw MD /nt
[2019-12-03 15:43] VITALS: BP 117/64
--- NOTE | 2019-12-03 15:54 | NUR ---
ESTHER reviewed chart and spoke with nursing and attending physician. Pt remains in Enhanced Isolation due to COVID-19. Pt is afebrile and on 2L of O2. Pt started course of Remdesivir yesterday. Pt has been accepted to [facility] when medically stable. ESTHER spoke with pt's , via phone to provide update. Pt's is currently in the hospital (room 364) with COVID-19. Pt's does not want her to know that she is in the hospital. Pt's is agreeable with discharge plan for pt and requests that she and her dtr, Autumn ([phone]) be kept updated. Pt's states that if her condition gets worse, Autumn, will need to be the point of contact for pt. ESTHER updated [facility] post-acute liaison. ESTHER is following to assist as needed with discharge planning.
--- NOTE | 2019-12-03 18:38 | NUR ---
PT'S CODE STATUS CHANGED TODAY, PER THERE IS NO FURTHER PURSUIT, RN DID SEE AN ORDER FOR 2L/NC FOR COMFORT. RN ADMINISTERED LORAZEPAM FOR PT ANXIETY, PT WAS ABLE TO RELAX. PPN WAS DISCONTINUED PER ORDER. PT DID HAVE AN EPISODE OF CONFUSIONG TOWARDS THE END OF THE SHIFT. TRIED TO GET OUT OF THE BED. PT WAS ESCORTED BACK INTO BED WITH RN/BRAIDER TENDER ASSISTANCE. NO COMPLAINTS OF NAUSEA THIS SHIFT. THE ROOM IS DIMLY LIT TO REDUCE ANXIETY/STRESS. ENSURE WAS ENCOURAGED THROUGHOUT THE SHIFT. NASAL CANULA REMAINS IN PLACE. SHETH IS STILL PERFORMING WELL. CONTINUING TO MONITOR AT THIS TIME
[2019-12-03 19:30] VITALS: BP 134/76
--- NOTE | 2019-12-04 07:16 | NUR ---
ASSUMED PT CARE AROUND 1930. ALERT AND AWAKE WITH OCCASIONAL IMPULSIVITY TO STAND UP. VSS. SHETH INTACT. NO S/S ACUTE DISTRESS NOTED OR REPORTED AT THIS TIME. CARE TRANSFERRED TO INCOMING RN AT THIS TIME.
[2019-12-04 07:53] LABS: ALBUMIN 1.8 g/dL (3.4-5.0); CREATININE 0.9 mg/dL (0.7-1.3); DIRECT BILIRUBIN < 0.1 mg/dL (<0.1-0.2); SGOT 41 U/L (15-37); SGPT 22 U/L (30-65); TOTAL BILIRUBIN 0.2 mg/dL (0.2-1.0); TOTAL PROTEIN 7.4 g/dL (6.4-8.2)
--- NOTE | 2019-12-04 15:50 | NUR ---
Received consult for pt to go to a LTC facility with hospice. SW reviewed chart and spoke with nursing and attending physician. Pt is a DNR. Pt remains in Enhanced Isolation due to COVID-19. Pt is afebrile and on 2L of O2. [facility] is able to accept pt. SW placed call to pt's 's room here at the hospital to discuss discharge plan and SNF v. LTC with hospice. 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 No answer. SW to follow up with pt's to discuss discharge plans. SW to contact pt's dtr, Autumn, if pt's is unable to assist with discharge planning. SW is following to assist as needed with discharge planning.
[2019-12-04 17:00] VITALS: BP 117/71
--- NOTE | 2019-12-04 18:38 | NUR ---
PATIENT HAS RESTED IN BED THROUGH THE DAY. HE IS PLEASANTLY CONFUSED. RESPIRATIONS ARE NON LABORED. CONT WITH PLAN OF CARE.
[2019-12-04 20:19] VITALS: BP 131/76
[2019-12-05 04:24] VITALS: BP 114/68
[2019-12-05 07:09] LABS: ALBUMIN 1.8 g/dL (3.4-5.0); CREATININE 0.6 mg/dL (0.7-1.3); DIRECT BILIRUBIN < 0.1 mg/dL (<0.1-0.2); SGOT 39 U/L (15-37); SGPT 19 U/L (30-65); TOTAL BILIRUBIN 0.2 mg/dL (0.2-1.0); TOTAL PROTEIN 7.3 g/dL (6.4-8.2)
--- NOTE | 2019-12-05 07:11 | NUR ---
progress pt alert to self and some people but confused about time. slept most of shift strong in place draining large amounts of urine denies pain able to assist in repositioning. lungs with slight crackles in upper obes diminished in bases. no iv access tele dc'd [id number] poc.
--- NOTE | 2019-12-05 07:31 | NUR ---
progress pt alert pleasant and cooperative. denies pain tele intact on room air diminished lung sounds with an occasional non productive cough, strong intact draining large amount of urine. had a small bm slept most of shift continue poc.
[2019-12-05 07:41] VITALS: BP 119/68
--- NOTE | 2019-12-05 18:33 | NUR ---
RN HAS ASSUMED PT'S CARE AT 0700AM, PT IS A&OX2 ( PERSON AND PLACE ), PT CAN FOLLOW COMMANDS, PT IS CONTINUING ISOLATION FOR POSITIVE COVID, PT STARTS COMFORT CARE AT 12/03/19, WE ENCAURAGE PT TO EAT AND DRINK, PT DENIES PAIN AND SOB AT THIS TIME.
[2019-12-05 19:37] VITALS: BP 102/61
--- NOTE | 2019-12-06 03:37 | NUR ---
PATIENT ASSESSED AND IS ALERT X 1-2. IS ON COMFORT CARE. REMAINS CONFUSED AT TIMES. TURNS SELF ALL THE TIME. SHETH INTACT. REMAINS ON BEDREST. IS A POOR EATER. ENCOURGED TO EAT AND DRINK FLUIDS MORE. HAS A IV IN RIGHT AND LEFT FA IV. NO SKIN ISSUES NOTED. TURNS SELF IN BED. CONT PLAN OF CARE.
[2019-12-06 04:27] VITALS: BP 120/70
[2019-12-06 06:53] LABS: ALBUMIN 1.8 g/dL (3.4-5.0); CREATININE 0.7 mg/dL (0.7-1.3); DIRECT BILIRUBIN 0.1 mg/dL (<0.1-0.2); TOTAL BILIRUBIN 0.3 mg/dL (0.2-1.0); TOTAL PROTEIN 7.3 g/dL (6.4-8.2)
--- NOTE | 2019-12-06 16:24 | NUR ---
SW reviewed chart and spoke with nursing and attending physician. Pt remains in Enhanced Isolation due to COVID-19. Pt is afebrile and on comfort care measures. Pt's in ICU. SW spoke with pt's dtr, Yue, via phone to provide update. Pt's dtr state they would like pt to receive rehab services. SW explained that pt's had discussed with palliative care physician that pt would be comfort care and not be continuing with aggressive treatment at this time. SW also discussed post acute placement at [facility], which had been previously discussed with pt's . Pt's dtrs state they need to discuss plans with family over the weekend, as they do not want pt to go to a nursing facility. Provided SW contact info. No weekend discharge planned. SW is following to assist as needed with discharge planning.
[2019-12-06 16:35] VITALS: BP 98/62
--- NOTE | 2019-12-06 18:37 | NUR ---
PATIENT REMAINS CONFUSED AT THIS TIME. DOES NOT SEEM TO BE IN PAIN. PLEASANT WITH CARE. WILL WITH PLAN OF CARE.
[2019-12-06 19:54] VITALS: BP 101/62
--- NOTE | 2019-12-06 22:29 | NUR ---
PT RESTING IN BED WATCHING TV. O2 PER NC. BLUNTED AFFECT, MINIMAL VERBAL RESPONSE TO STAFF INTERACTIONS. SHETH INTACT. PT REPORTED TO HAVE POOR PO INTAKE AND DECLINED HS SNACK. BED ALARM ON. PTS DAUGHTER BAKARI CALLED FOR UPDATE.
[2019-12-07 04:00] VITALS: BP 116/61
[2019-12-07 07:54] VITALS: BP 131/78
[2019-12-07 15:48] VITALS: BP 93/59
--- NOTE | 2019-12-07 18:12 | NUR ---
PATIENT CONT TO BE WEAK. HE DOES NOT SEEM TO BE IN PAIN. HE HAS RESTED IN ROOM THROUGH THE DAY. WILL CONT WITH PLAN OF CARE.
[2019-12-07 19:18] VITALS: BP 107/63
--- NOTE | 2019-12-08 02:17 | NUR ---
PT PROGRESSING SLOWLY TOWARDS D/C GOALS. VSS AFEBRILE. NO C/O TONIGHT. HE IS RESTING QUIETLY. NO S/S DISTRESS. BED DOWN CALL LIGHT IN REACH. BED ALARM ON. WILL CONTINUE TO MONITOR PT FOR CHANGES.
[2019-12-08 04:33] VITALS: BP 114/65
[2019-12-08 09:03] VITALS: BP 116/64
--- NOTE | 2019-12-08 12:45 | NUR ---
ASSUMED PATIENT CARE THIS AM AT APPROXIMATELY 0700. PATIENT IS AWAKE ALERT, DISORIENTED TO TIME. PATIENT STATES HE IS FEELING OK THIS AM, REPORTS SOME NAUSEA. ZOFRAN GIVEN FOR NAUSEA AND TOLERATING WELL. TOLERATING PO MEDS. EATING LESS THAN 10% of MEALS TODAY. SPOKE WITH PATIENT DAUGHTER REGARDING PLAN OF CARE. STATES THAT SHE WOULD LIKE TO SET UP A FACETIME MEETING WITH HER MOTHER AND FATHER CONTACTED NURSE TAKING CARE OF PATIENT AND AWAITING CALL BACK FOR AVALIABLE TIME FOR VIDEOCALL. PATIENT ENCOURAGED TO TURN IN BED AND ASSISTED TO SET UP FOR ALL MEALS.
[2019-12-08 17:45] VITALS: BP 100/58
[2019-12-08 19:07] VITALS: BP 101/59
--- NOTE | 2019-12-09 02:10 | NUR ---
PT IS ALERT AND ORIENTED X4 VSS AFEBRILE. ENC PO FLUIDS AND SNACK. PT HAS POOR APPETITE. DENIED PAIN. UNALBORED ON 2LNC. PT REFUSED TO TURN. HE CAN TURN HIMSELF. NO SKIN BREAKDOWN NOTED. ENCOURAGED HIM TO TURN SIDE TO SIDE. BED DOWN .CALL LIGHT IN REACH. BED ALARM IS ON.
[2019-12-09 03:12] VITALS: BP 116/66
--- NOTE | 2019-12-09 06:18 | NUR ---
PT RESTING QUIETLY. NO S/S DISTRESS.
[2019-12-09 06:37] VITALS: BP 116/64
[2019-12-09 08:13] VITALS: BP 108/64
--- NOTE | 2019-12-09 12:31 | NUR ---
FOOD SET UP FOR PATIENT. PT ENCOURAGED TO DRINK HIS ENSURE.
--- NOTE | 2019-12-09 15:37 | NUR ---
SW reviewed chart and spoke with nursing and attending physician. Pt remains in Enhanced Isolation due to COVID-19. Pt is afebrile and on 2L of O2. ESTHER received voice message from pt's dtr, Shraddha. SW returned call and discuss discharge plans for pt. SW discussed conversations and plans made with pt's last week, who is currently in ICU on continuous bipap. SW discussed pt's request for comfort care measures for pt as family does not want aggressive treatment for pt's lung cancer: no chemo/radiation. Pt's dtr states family has spoken and would like for pt to go to [facility] for skilled rehab services. Depending on how pt does with therapy, they may transition to comfort care/hospice. SW discussed the financial obligation if pt is long term care social worker care with hospice v. going skilled. Pt's dtr verbalized understanding and would like pt to start out as skilled. Pt's dtr aware that pt could be discharged as early as today and is agreeable with plan. ESTHER updated [facility] post-acute liaison, who states they are able to accept pt. SW updated attending physician. No discharge orders/summary at this time. ESTHER updated pt's dtr, Shraddha, via phone. Anticipate discharge to SNF tomorrow. ESTHER updated [facility] post acute liaison as well. ESTHER is following to assist as needed with discharge planning.
[2019-12-09 16:03] VITALS: BP 107/61
--- NOTE | 2019-12-09 18:39 | NUR ---
NO CHANGE IN PT CONDITION TODAY. AWAITING DISCHARGE TO SKILLED REHAB PER THE DAUGHTERS DECISION.
[2019-12-09 19:29] VITALS: BP 109/54
--- NOTE | 2019-12-10 02:55 | NUR ---
PT NOT PROGRESSING WELL TOWARDS D/C GOALS. HE CONTINUES TO HAVE A POOR APPETITE. ENC FLUIDS. PT DENIED PAIN. TURNS SELF IN BED. UNLABORED ON 2LNC. BED DOWN CALL LIGHTIN REACH. BED ALARM ON.
[2019-12-10 03:21] VITALS: BP 110/62
--- NOTE | 2019-12-10 06:33 | NUR ---
PT RESTING QUIETLY. NO C/O VSS.
[2019-12-10 07:38] VITALS: BP 113/65
[2019-12-10 08:54] VITALS: BP 113/65
[2019-12-10] MEDS ORDERED: LANTUS SUBQ (12:38)
[2019-12-10] MEDS ORDERED: HUMALOG100 UNIT/1 SUBQ ×2 (12:38)
--- NOTE | 2019-12-10 13:51 | NUR ---
ASSUMED CARE APPROX 0700. PT ALERT AND ORIENTED X4. ASSESSMENT CHARTED AND VSS. PT TO BE D/C'D TODAY TO SNF. PT ON 2LNC W/O DISTRESS NOTED. NOT MONITORED ON TELE. PT C/O BACK PAIN THIS SHIFT. REPORTED RELIEF W/ PAIN MEDICATION. DTR UPDATED ON PT STATUS. WILL CONTINUE TO MONITOR.
--- NOTE | 2019-12-10 16:08 | NUR ---
DISCHARGE NOTE: SW reviewed chart and spoke with nursing and attending physician. Pt remains in Enhanced Isolation due to COVID-19. Pt is afebrile and on 2L of O2. Pt is medically stable for discharge to [facility]. SW faxed finalized discharge orders/summary and [id number] form to the facility. Confirmed info was received with [facility] post-acute liaison. Stretcher van transportation scheduled for [phone] via [facility] per facility's arrangements. ESTHER spoke with pt's dtr, Autumn, via phone to provide update and notify of discharge plan. Autumn is aware and agreeable with plan. Pt's , who is in the ICU, is also aware. Pt's family to take pt some clothes over the the facility. Chart copy requested. Nursing provided with number to call report. No additional SW needs identified at this time, but is available to assist should needs arise.
== END 2019-12-10 15:48 | DRG 177 ==
LOC: ER 03:02 → EROBS 07:56 → 3W 07:56
PROVIDERS: Emergency Medicine; Specialist; ADMIT Internal Medicine; ATTEND Internal Medicine
PROC: XW13325 Transfusion of Convalescent Plasma (Nonautologous) into Peripheral Vein, Percutaneous Approach, New Technology Group 5 (ICD-10-PCS; principal; 2019-12-02)
PROC: XW033E5 Introduction of Remdesivir Anti-infective into Peripheral Vein, Percutaneous Approach, New Technology Group 5 (ICD-10-PCS; principal; 2019-12-02)
PROC: XW033E5 Introduction of Remdesivir Anti-infective into Peripheral Vein, Percutaneous Approach, New Technology Group 5 (ICD-10-PCS; 2019-12-03)
PROC: XW033E5 Introduction of Remdesivir Anti-infective into Peripheral Vein, Percutaneous Approach, New Technology Group 5 (ICD-10-PCS; 2019-12-04)
DX: U07.1 COVID-19 (principal); E43 Unspecified severe protein-calorie malnutrition; J12.89 Other viral pneumonia; J96.01 Acute respiratory failure with hypoxia; C34.90 Malignant neoplasm of unspecified part of unspecified bronchus or lung; E87.1 Hypo-osmolality and hyponatremia; Z68.1 Body mass index [BMI] 19.9 or less, adult; I10 Essential (primary) hypertension; E83.42 Hypomagnesemia; D64.9 Anemia, unspecified; I25.10 Atherosclerotic heart disease of native coronary artery without angina pectoris; F32.9 Major depressive disorder, single episode, unspecified; N40.0 Benign prostatic hyperplasia without lower urinary tract symptoms; E78.5 Hyperlipidemia, unspecified; K21.9 Gastro-esophageal reflux disease without esophagitis; Z66 Do not resuscitate; E87.8 Other disorders of electrolyte and fluid balance, not elsewhere classified; Z51.5 Encounter for palliative care; R63.0 Anorexia; E11.40 Type 2 diabetes mellitus with diabetic neuropathy, unspecified; Z90.49 Acquired absence of other specified parts of digestive tract; I25.2 Old myocardial infarction; Z95.1 Presence of aortocoronary bypass graft; Z79.899 Other long term (current) drug therapy; Z79.01 Long term (current) use of anticoagulants; Z79.82 Long term (current) use of aspirin; Z87.891 Personal history of nicotine dependence
CPT/HCPCS: 10080; 10879